=== PATIENT | male | born 1955 | race Caucasian/White ===

== ENCOUNTER 2016-08-02 06:43 | Day surgery (SDC) | payer BC ==
[~2016-08-02] VITALS: Ht 188 cm; Wt 108.3 kg
[~2016-08-02 06:43] MED LIST: ASPI-557 PO; PARO-38 PO
--- OUTSIDE RECORDS SUMMARY | 2016-08-02 06:47 | XMS REPORT | Continuity of Care Document ---
Author Author [facility] Address Unknown Phone Unavailable Allergies Active Description Code Type Severity Reaction Onset Reported/Identified Relationship to Patient Clinical Status Yes NKDA N/A N/A Medications Problems Procedures Results Encounters ACCT No. Visit Date/Time Discharge Status Pt. Type Provider Facility Loc./Unit Complaint [id number] 03/09/2014 10:00:11 03/09/2014 10:00:11 DIS Outpatient [id number] 03/07/2014 09:26:15 03/07/2014 23:59:59 CLS Outpatient [id number] 03/07/2014 09:25:26 03/07/2014 09:25:27 DIS Outpatient [id number] 02/28/2014 12:28:47 02/28/2014 23:59:59 CLS Outpatient [id number] 02/28/2014 09:51:56 02/28/2014 23:59:59 CLS Outpatient [id number] 02/24/2014 10:01:37 02/24/2014 23:59:59 CLS Outpatient [id number] 02/24/2014 10:00:45 02/24/2014 23:59:59 CLS Outpatient [id number] 02/24/2014 09:51:24 02/24/2014 23:59:59 CLS Outpatient [id number] 02/24/2014 09:47:31 02/24/2014 23:59:59 CLS Outpatient [id number] 02/21/2014 12:26:13 02/21/2014 23:59:59 CLS Outpatient [id number] 02/21/2014 11:00:10 02/21/2014 11:00:11 DIS Outpatient [id number] 02/18/2014 13:17:20 02/18/2014 13:17:20 DIS Outpatient [id number] 02/18/2014 13:13:51 02/18/2014 13:13:51 DIS Outpatient [id number] 02/18/2014 09:44:12 02/18/2014 09:44:12 DIS Outpatient [id number] 02/18/2014 09:28:38 02/18/2014 09:28:38 DIS Outpatient [id number] 02/18/2014 08:34:05 02/18/2014 08:34:05 DIS Outpatient [id number] 02/18/2014 08:34:04 02/18/2014 08:34:04 DIS Outpatient [id number] 02/18/2014 08:33:39 02/18/2014 08:33:39 DIS Outpatient [id number] 02/18/2014 08:14:08 02/18/2014 08:14:08 DIS Outpatient [id number] 02/18/2014 08:10:22 02/18/2014 08:10:22 DIS Outpatient [id number] 02/18/2014 08:02:50 02/18/2014 08:02:50 DIS Outpatient [id number] 02/18/2014 08:02:49 02/18/2014 08:02:49 DIS Outpatient [id number] 02/18/2014 08:02:47 02/18/2014 08:02:47 DIS Outpatient [id number] 02/18/2014 08:02:28 02/18/2014 08:02:28 DIS Outpatient [id number] 02/18/2014 08:02:27 02/18/2014 08:02:27 DIS Outpatient [id number] 02/18/2014 08:17:00 Document Registration
[2016-08-02 06:50] VITALS: BP 129/84; PULSE 74; RESP 16; TEMP 97.6; O2SAT 94; Ht 188 cm; Wt 108.3 kg
[2016-08-02] MEDS ORDERED: LR 1,000 ML IV SCH (07:00)
[2016-08-02] MEDS ORDERED: LIDOCAINE 1% (10mg/ml) 2ml SDV INJ ONE (07:00)
[2016-08-02] MEDS ORDERED: ASCO500T9 PO (07:02)
[2016-08-02] MEDS ORDERED: B CO1TAB6 PO (07:02)
--- NOTE | 2016-08-02 08:06 | ANESPREOP ---
Anesthesia Record Date and Time DATE: 08/02/16 TIME: 704 Proposed Surgical Procedure COLONOSCOPY Allergies: Coded Allergies: citalopram (Verified Allergy, Unknown, 08/02/16) Ht/Wt/BMI Height: 6 ' 2.00 " Weight: 108.300 kg BMI: 30.7 kg/m2 Vital Signs Date Time Temp Pulse Resp B/P Pulse Ox O2 Delivery O2 Flow Rate FiO2 08/02/16 06:50 97.6 74 16 129/84 94 Room Air Medications Inpatient Medications Current Medications Medications (Trade) Dose Ordered Sig/Angel Start Time Stop Time Status Last Admin Dose Admin Lactated Ringer's (Lactated Ringers) 1,000 ml @ 50 mls/hr Q20H 08/02/16 07:00 08/02/16 07:11 50 MLS/HR Ascorbic Acid (Vitamin C) 500 Mg Tablet, 1 TAB PO TWICE A WEEK, (Reported) Last Taken: on 07/29/16 0800 Aspirin (Aspir 81) 81 Mg Tablet.dr, 1 TAB PO DAILY, (Reported) Last Taken: on 07/25/16 0800 B Complex with Vitamin C (B-Complex with C) 1 Each Tablet, 1 TAB PO TWICE A WEEK, (Reported) Last Taken: on 08/01/16 0800 Paroxetine HCl (Paroxetine HCl) 20 Mg Tablet, 1 TAB PO DAILY, (Reported) Last Taken: on 08/01/16 0800 Currently on Beta Lashawn: No Medical/Surgical History Anesthesia PMH: Denies: Anesthesia Reactions (NO AIRWAY ISSUES), Cancer, Glaucoma Smoking Status: Never smoker Has pt. smoked today?: No Use Chewing Tobacco?: No Alcohol Intake: none Past Surgical History Orthopedic Surgeries: Yes - DUPUYTREN'S RELEASE ARUNA. Abdominal Surgeries: Yes - APPY Genitourinary Surgeries: Cardiac Surgeries: Endocrine Surgeries: Reproductive Surgeries: Neurological Surgeries: Ear Surgeries: Nose Surgeries: Throat Surgeries: Other Surgeries: Yes - COLONOSCOPY Anesthesia Adverse Reactions: FOUND none Family Hx of Anesthesia Advers: none Hx of Motion Sickness: No Physical Exam Respiratory: Lungs clear Cardiovascular: FOUND Regular rate, rhythm Airway Assessment Mallampati Score: II TMD: 3 Fingerbreadths Neck Extension: Good Overall Assessment: No Airway Concerns ASA: 2 Plan Anesthesia Plan: TIVA Discussion Discussed risks/options/alternatives of anesthesia and questions answered. Patient consents. Nursing pain assessment noted. Present: Spouse Attestation Statement Prior to the delivery of any anesthetic medication, I examined the patient, developed the plan, obtained the patient's consent and discussed the risk and benefits of the procedure with the patient/guardian. MELVIN LR CRNA Aug 02, 2016 08:06
[2016-08-02] MEDS ORDERED: PROPOFOL 500mg 50 ML IV ONE (08:09)
[2016-08-02 08:58] VITALS: BP 120/69; PULSE 66; RESP 14; TEMP 99.1; O2SAT 96
[2016-08-02 09:10] VITALS: BP 124/86; PULSE 71; RESP 16; O2SAT 100
[2016-08-02 09:20] VITALS: BP 125/70; PULSE 67; RESP 15; O2SAT 98
--- NOTE | 2016-08-03 10:40 | OPNOTEF ---
DATE OF PROCEDURE 08/02/16 PREOPERATIVE DIAGNOSIS Screening colonoscopy. POSTOPERATIVE DIAGNOSIS Screening colonoscopy; within normal limits. ANESTHESIA TIVA SURGEON Mikey Chandra M.D. PROCEDURE Colonoscopy, no biopsies taken. PROCEDURE NOTE Patient was prepped with Colyte the evening prior to the procedure. He was placed in a left lateral position. After a benign digital rectal exam the colonoscope was inserted and advanced to the cecum with cecal landmarks identified. The cecum, ascending colon, transverse colon and sigmoid showed no evidence of hemorrhage, mass lesions, ulcerations, polyps or diverticular disease. No significant inflammatory changes were noted. The rectum and anus were clear. The colon was suctioned and the scope removed. Patient tolerated the procedure well. Follow up colonoscopy recommended in ten years or sooner as clinically indicated. ROSANNA
== END 2016-08-02 09:33 | disposition home or self-care (01) ==
LOC: NSC 06:43
DX: Z12.11 Encounter for screening for malignant neoplasm of colon (principal); G62.89 Other specified polyneuropathies; J30.2 Other seasonal allergic rhinitis; Z79.82 Long term (current) use of aspirin; Z79.899 Other long term (current) drug therapy
CPT/HCPCS: 45378; J2704; J7120